=== PATIENT | female | born 1985 | race Hispanic/Latino ===

== ENCOUNTER 2023-04-09 22:20 | Emergency (ER) | payer OTHER, SELFPAY ==
[2023-04-09 22:21] VITALS: BP 157/95; PULSE 109; RESP 18; TEMP 36.5; O2SAT 100
[2023-04-09] MEDS: ACETAMINOPHEN 500 MG TABLET 1000 MG PO (23:22)
--- NOTE | 2023-04-09 23:35 | ED.GENADULT ---
HPI - General Adult General Chief complaint: Dental/Oral Stated complaint: dental pain Time Seen by Provider: 04/09/23 22:51 Source: patient Mode of arrival: ambulatory Limitations: no limitations History of Present Illness HPI narrative: This is a 37-year-old female who presents to the ED with chief complaint of right lower dental pain ongoing for the past several weeks and worse in the last couple of days. Reports she has a cracked right lower molar that probably has a cavity. Denies fevers, chills, nausea, vomiting. Denies any trismus or drooling. Patient reports she is about 7.5 months . Related Data Allergies Allergy/AdvReac Type Severity Reaction Status Date / Time No Known Allergies Allergy Verified 04/09/23 22:54 Review of Systems Review of Systems: All systems as dictated in HPI Exam Narrative: GENERAL: Well-appearing, well-nourished, and in no acute distress. HEAD: Normocephalic, atraumatic. EYES: PERRLA and EOMI. ENT: Nares clear, no rhinorrhea or epistaxis. Mucous membranes moist. Oropharynx without tonsillar hypertrophy exudate or other lesions. Dental caries noted to the right lower molar. No obvious or identifiable abscess. Floor the mouth intact. No trismus. No drooling. NECK: Supple. No adenopathy or masses. CHEST: No respiratory distress. Clear to auscultation. No wheezes rales or rhonchi HEART: Regular rate and rhythm. No murmur heard. Normal peripheral pulses. ABDOMEN: Soft, nontender, nondistended, normal active bowel sounds. MSK: Normal range of motion. No edema. SKIN: Warm, dry, no rash. NEURO: Alert and oriented x3. No focal deficits. PSYCH: Normal mood and affect. Course Vital Signs Vital signs: Vital Signs Temperature 97.7 F 04/09/23 22:21 Pulse Rate 109 H 04/09/23 22:21 Respiratory Rate 18 04/09/23 22:21 Blood Pressure 157/95 H 04/09/23 22:21 Pulse Oximetry 100 04/09/23 22:21 Oxygen Delivery Room Air 04/09/23 22:21 Temperature 97.7 F 04/09/23 22:21 Pulse Rate 109 H 04/09/23 22:21 Respiratory Rate 18 04/09/23 22:21 Blood Pressure 157/95 H 04/09/23 22:21 Pulse Oximetry 100 04/09/23 22:21 Oxygen Delivery Room Air 04/09/23 22:21 Procedures Nerve Block Nerve Block 1: Nerve block date: 04/09/23 Nerve block time: 23:57 Time out performed: No Local Anesthetic: bupivacaine 0.5% Amount of anesthesia used (mL): 1.5 Side: right Intraoral Nerve Block: superior alveolar Procedure Successful: Yes Patient Tolerated Procedure: well Complications: none Medical Decision Making MDM Narrative Medical decision making narrative: This is a 37-year-old female who is and presents to the ED with chief complaint of dental pain. Exam shows dental caries to the right lower molar. No trismus or drooling or other signs of oropharyngeal emergency. She was given Tylenol here. Performed inferior alveolar nerve block with good effect. Prescription for amoxicillin given. Dental referral given. Pt will be discharged in stable condition. Return precautions given and supportive measures discussed. Pt is understanding and agreeable with plan for discharge and follow-up with PCP. Vital Signs Vital Signs: Vital Signs Temperature 97.7 F 04/09/23 22:21 Pulse Rate 109 H 04/09/23 22:21 Respiratory Rate 18 04/09/23 22:21 Blood Pressure 157/95 H 04/09/23 22:21 Pulse Oximetry 100 04/09/23 22:21 Oxygen Delivery Room Air 04/09/23 22:21 Temperature 97.7 F 04/09/23 22:21 Pulse Rate 109 H 04/09/23 22:21 Respiratory Rate 18 04/09/23 22:21 Blood Pressure 157/95 H 04/09/23 22:21 Pulse Oximetry 100 04/09/23 22:21 Oxygen Delivery Room Air 04/09/23 22:21 Discharge Plan Discharge Clinical Impression: Dental caries Patient Disposition: Home, Self-Care Condition: Stable Instructions: Antibiotic Form Additional Instructions:
[2023-04-09] MEDS: LIDOCAINE HCL 2% VISC SOLN 15 ML UDC PO (23:38)
[2023-04-10 00:36] VITALS: BP 139/89; PULSE 88; RESP 16; O2SAT 100
== END 2023-04-10 00:42 | disposition home or self-care (01) ==
PROVIDERS: Emergency Provider Physician Assistant
DX: O99.612 Diseases of the digestive system complicating pregnancy, second trimester (principal); K02.9 Dental caries, unspecified; Z3A.00 Weeks of gestation of pregnancy not specified
CPT/HCPCS: 64999; 99283; A9270

== ENCOUNTER 2023-05-07 16:14 | Outpatient (CLI) | payer OTHER, SELFPAY ==
[2023-05-07 16:38] VITALS: BP 118/76; PULSE 105
[2023-05-07 16:41] VITALS: BP 124/70; PULSE 106
[2023-05-07 16:43] LABS: Basophils Percent Auto 0.1 % (0.2-1.2); Eosinophils Absolute Auto 0.1 K/mm3 (0-0.3); Hematocrit 31.9 % (37.0-47.0); Hemoglobin 10.6 g/dL (12.0-15.0); Immature Granulocyte Absolute 0.02 K/mm3 (0.00-0.031); Immature Granulocyte Percent A 0.3 % (0-0.5); Lymphocytes Absolute Auto 2.17 K/mm3 (0.9-3.2); Lymphocytes Percent Auto 30.4 % (18.3-44.2); Mean Corpuscular HGB Conc 33.2 g/dl (32-36); Mean Corpuscular Hemoglobin 27.7 pg (26-34); Mean Corpuscular Volume 83.5 fl (80-100); Mean Platelet Volume 11.5 fl (7.4-10.4); Monocytes Absolute Auto 0.5 K/mm3 (0.1-0.6); Monocytes Percent Auto 6.6 % (2.6-8.5); Neutrophils Absolute Auto 4.4 K/mm3 (1.3-6.7); Neutrophils Percent Auto 61.6 % (45.5-73.1); Platelet Count Result 248 k/mm3 (150-375); Red Blood Count 3.82 M/mm3 (4.2-5.4); Red Cell Distribution Width 13.6 % (11.5-14.5); White Blood Count 7.1 K/mm3 (4.5-10.0)
[2023-05-07 16:45] VITALS: PULSE 83; RESP 18; TEMP 36.6
--- NOTE | 2023-05-07 16:45 | LDADM ---
This patient, Laura Sanchez, was admitted to Labor/Delivery/Recovery 119 on at 16:14. Plans for labor, pain management and were discussed with patient. Patient/family oriented to hospital policies and general routines including ID bracelet, bed and alarms, visiting hours, pain management, procedures, bathroom and other care routines, personal items, smoking policy, room service/diet and guest tray routines, security routines, and visiting hours. Patient/Family are encouraged to report perceived risks to care and to ask questions if they do not understand what they are told or what they should do. See OBIX for further documentation.
[2023-05-07 16:48] LABS: Appearance Urine Clear (Clear); Bacteria Urine None Seen /hpf; Bilirubin Urine Negative (Negative); Blood Urine Negative (Negative); Color Urine Yellow (Yellow); Glucose Urine UA Negative (Negative); Ketones Urine Negative (Negative); Leukocyte Esterase Ur Negative LEU/UL (NEGATIVE); Nitrate Urine Negative (Negative); Non Pathogenic Casts 0-2; Protein Urine Trace mg/dL (Negative); RBC Urine 0-2 /hpf (0-2); Specific Grav Ur 1.015 (1.001-1.035); Squamous Epithelial Cell Urine Occasional /hpf (Few); WBC Urine 0-5 /hpf (0-3)
[2023-05-07 16:51] VITALS: BP 119/80; PULSE 105
[2023-05-07 16:58] LABS: Alanine Aminotransferase 17 U/L (6-35); Albumin Level 3.9 g/dL (3.5-5.1); Alkaline Phosphatase 294 U/L (38-126); Anion Gap 2 mmol/L (8-16); Aspartate Amino Transferase 27 U/L (14-36); Bilirubin,Total 0.5 mg/dL (0.2-1.3); Blood Urea Nitrogen 6 mg/dL (7-17); Calcium 9.3 mg/dL (8.4-10.2); Carbon Dioxide 21 mmol/L (22-30); Chloride 107 mmol/L (98-107); Estimated Glomerular Filt Rate > 60; Glucose 87 mg/dL (65-110); Sodium 130 mmol/L (137-145); Uric Acid 4.5 mg/dL (2.5-7.5)
[2023-05-07 16:59] LABS: Creatinine Urine 73.8 mg/dL; Total Protein Urine Random 17 mg/dL; Ur Ttl Prot Creatinine Ratio 0.23 mg/mg (0-0.20)
[2023-05-07 17:01] VITALS: BP 120/71; PULSE 103
[2023-05-07 17:02] LABS: Add Urine Microscopic? YES
[2023-05-07 17:11] VITALS: BP 99/80; PULSE 110
== END 2023-05-07 17:23 | disposition home or self-care (01) ==
LOC: ANHOBOP 16:18 → ANHLDR 16:18
PROVIDERS: Visit Provider Obstetrics & Gynecology
DX: O13.9 Gestational [pregnancy-induced] hypertension without significant proteinuria, unspecified trimester (principal); Z3A.00 Weeks of gestation of pregnancy not specified
CPT/HCPCS: 36415; 59025; 80053; 81001; 82570; 84156; 84550; 85025; 87086; 99199

== ENCOUNTER 2023-05-12 05:08 | Inpatient (IN) | payer OTHER, SELFPAY ==
[2023-05-12] VITALS (280 sets, daily range): BP systolic 87–162; BP diastolic 36–136; PULSE 76–203; RESP 16; TEMP 36.2–37; O2SAT 97–100; BMI 31.4
--- NOTE | 2023-05-12 05:31 | LDADM ---
This patient, Laura Clarke, was admitted to Labor/Delivery/Recovery 102 on 05/12/23 at 05:08. Plans for labor, pain management and were discussed with patient. Patient/family oriented to hospital policies and general routines including ID bracelet, bed and alarms, visiting hours, pain management, procedures, bathroom and other care routines, personal items, smoking policy, room service/diet and guest tray routines, infant security routines, and visiting hours. Patient/Family are encouraged to report perceived risks to care and to ask questions if they do not understand what they are told or what they should do. See OBIX for further documentation.
--- NOTE | 2023-05-12 05:44 | P.HP_ITS ---
H&P: HPI History of Present Illness Date/Time: 05/12/23 05:44 Chief Complaint: Hypertension at term Narrative: 37-year-old 4 para 2011 menstrual was 08/27/2022 use 124, presents at 37-,1/7 weeks gestation for induction of labor secondary to hypertension at term. She complains of headache. She had a vaginal delivery followed by C- section secondary to severe -induced hypertension. PIH labs are pending she is negative for group B strep. Meds Home Medications and Allergies Home Medications Medication Instructions Recorded Confirmed Type amoxicillin 500 mg capsule 500 mg PO Q12H #10 caps 04/09/23 Rx Allergies Allergy/AdvReac Type Severity Reaction Status Date / Time No Known Allergies Allergy Verified 04/09/23 22:54 Vital Signs Vital Signs - 24 hr 05/12/23 05:41 Pulse Rate 95 Blood Pressure 145/97 H Exam Const: General: cooperative, healthy appearing and comfortable Nutritional Appearance: average body habitus Orientation/consciousness: oriented to person, oriented to place and oriented to time HENMT: Head: normal to inspection Resp: Effort & Inspection: normal respiratory effort Cardio: Rate: regular rate Rhythm: regular rhythm Heart sounds: S1 normal heart sound present and S2 normal heart sound present GI: Inspection: normal to inspection ( Gravid soft uterus) : External Female Exam: normal external appearance Speculum Exam - Vagina: normal appearance of the vagina Speculum Exam - Cervix: normal appearance of the cervix ( cervix 2.5/60/2. AROM clear. FHT is reassuring) Assessment and Plan Assessment and plan (1) Term : Code(s): Z34.90 - Encounter for supervision of normal , unspecified, unspecified trimester Status: Acute (2) Gestational hypertension: Code(s): O13.9 - Gestational [-induced] hypertension without significant proteinuria, unspecified trimester Status: Acute Plan medical induction of labor. Spontaneous vaginal delivery expected. PIH labs were drawn. Risks and benefits of reviewed
[2023-05-12 05:45] LABS: Basophils Percent Auto 0.1 % (0.2-1.2); Eosinophils Absolute Auto 0.1 K/mm3 (0-0.3); Eosinophils Percent Auto 1.1 % (0-4.4); Hematocrit 32.5 % (37.0-47.0); Hemoglobin 10.6 g/dL (12.0-15.0); Immature Granulocyte Absolute 0.02 K/mm3 (0.00-0.031); Immature Granulocyte Percent A 0.3 % (0-0.5); Lymphocytes Absolute Auto 2.15 K/mm3 (0.9-3.2); Lymphocytes Percent Auto 29.9 % (18.3-44.2); Mean Corpuscular HGB Conc 32.6 g/dl (32-36); Mean Corpuscular Hemoglobin 27.9 pg (26-34); Mean Corpuscular Volume 85.5 fl (80-100); Mean Platelet Volume 11.9 fl (7.4-10.4); Monocytes Absolute Auto 0.6 K/mm3 (0.1-0.6); Monocytes Percent Auto 7.7 % (2.6-8.5); Neutrophils Absolute Auto 4.4 K/mm3 (1.3-6.7); Neutrophils Percent Auto 60.9 % (45.5-73.1); Platelet Count Result 254 k/mm3 (150-375); Red Cell Distribution Width 13.6 % (11.5-14.5); White Blood Count 7.2 K/mm3 (4.5-10.0)
[2023-05-12 05:56] LABS: Uric Acid 4.4 mg/dL (2.5-7.5)
[2023-05-12 06:01] LABS: Alanine Aminotransferase 14 U/L (6-35); Albumin Level 3.7 g/dL (3.5-5.1); Alkaline Phosphatase 256 U/L (38-126); Anion Gap 6 mmol/L (8-16); Aspartate Amino Transferase 24 U/L (14-36); Bilirubin,Total 0.4 mg/dL (0.2-1.3); Blood Urea Nitrogen 7 mg/dL (7-17); Calcium 9.1 mg/dL (8.4-10.2); Carbon Dioxide 22 mmol/L (22-30); Chloride 108 mmol/L (98-107); Estimated CRCL calculation 134 ml/min; Estimated Glomerular Filt Rate > 60; Glucose 92 mg/dL (65-110); Potassium 3.8 mmol/L (3.4-5.0); Sodium 136 mmol/L (137-145)
[2023-05-12 07:27] LABS: HIV 1/2 Ab P24 Ag Result Negative (Negative)
[2023-05-12] MEDS: LACTATED RINGERS 1,000 ML 125 ML IV CONT (08:18)
[2023-05-12] MEDS: OXYTOCIN 30 UNITS/NS 500 ML 30 UNITS/500 ML BAG IV CONT (08:20)
[2023-05-12] MEDS: LACTATED RINGERS 1,000 ML 999 ML IV CONT ×3 (10:34→19:30)
--- NOTE | 2023-05-12 11:00 | WPDANESEPP ---
Anes - Eval Pre Procedure Procedure: Labor Epidural Date/Time: 05/12/23 11:00 Surgeon: Danika Preop Diagnosis: Labor Pain Pre Op Diagnosis: iol Patient Data Age: 37 Gender: F Height: 1.63 m Weight: 83 kg Last Vital Signs Temp 36.6 C 05/12/23 09:00 Pulse 107 H 05/12/23 10:58 BP 130/80 05/12/23 10:58 Pulse Ox 99 05/12/23 10:58 Allergies Allergy/AdvReac Type Severity Reaction Status Date / Time No Known Allergies Allergy Verified 04/09/23 22:54 Home Medications Medication Instructions Recorded Confirmed Type amoxicillin 500 mg capsule 500 mg PO Q12H #10 caps 04/09/23 Rx Laboratory Tests 05/12/23 05:24 WBC 7.2 K/mm3 (4.5-10.0) RBC 3.80 L M/mm3 (4.2-5.4) Hgb 10.6 L g/dL (12.0-15.0) Hct 32.5 L % (37.0-47.0) MCV 85.5 fl (80-100) MCH 27.9 pg (26-34) MCHC 32.6 g/dl (32-36) RDW 13.6 % (11.5-14.5) Plt Count 254 k/mm3 (150-375) MPV 11.9 H fl (7.4-10.4) Immature Gran % (Auto) 0.3 % (0-0.5) Neut % (Auto) 60.9 % (45.5-73.1) Lymph % (Auto) 29.9 % (18.3-44.2) Wright % (Auto) 7.7 % (2.6-8.5) Eos % (Auto) 1.1 % (0-4.4) Baso % (Auto) 0.1 L % (0.2-1.2) Lymph # (Auto) 2.15 K/mm3 (0.9-3.2) Wright # (Auto) 0.6 K/mm3 (0.1-0.6) Eos # (Auto) 0.1 K/mm3 (0-0.3) Baso # (Auto) 0.0 K/mm3 (0.0-0.1) Abs Immat Gran (auto) 0.02 K/mm3 (0.00-0.031) Absolute Neuts (auto) 4.4 K/mm3 (1.3-6.7) Absolute Nucleated RBC 0.0 K/mm3 (0.0-0.012) Nucleated RBC % 0.0 % (0.0-0.2) Sodium 136 L mmol/L (137-145) Potassium 3.8 mmol/L (3.4-5.0) Chloride 108 H mmol/L (98-107) Carbon Dioxide 22 mmol/L (22-30) Anion Gap 6 L mmol/L (8-16) BUN 7 mg/dL (7-17) Creatinine 0.50 L mg/dL (0.7-1.0) Estim Creat Clear Calc 134 ml/min Estimated GFR > 60 (59 - ) Glucose 92 mg/dL (65-110) Uric Acid 4.4 mg/dL (2.5-7.5) Calcium 9.1 mg/dL (8.4-10.2) Total Bilirubin 0.4 mg/dL (0.2-1.3) AST 24 U/L (14-36) ALT 14 U/L (6-35) Alkaline Phosphatase 256 H U/L (38-126) Total Protein 8.0 g/dL (6.3-8.2) Albumin 3.7 g/dL (3.5-5.1) RPR Pending HIV 1&2 Ab/P24 Ag 4thGn Negative (Negative) Blood Type O Positive Antibody Screen Negative : gestational age (ALEXANDER 06[birth year], , ) Patient hx anesthesia problems: none Family hx anesthesia problems: none Results Review: All pre-operative results and documents have been reviewed as part of the pre-operative evaluation. [facility] Social History Social History Smoking status: Never smoker Second hand tobacco smoke exposure: No Substance use: never Lack of Transportation: No Lack of Food: Sometimes True Current Housing: I Have Housing Concerned About Future Housing: No Difficulty Paying Gas/Electric Bills: No Difficulty Paying for Meds: No Currently Unemployed: No Education: Grade School Difficulty w/ Childcare or Family Care: No Spiritual care concerns: No Exam Day of Procedure 05/12/23 11:00 Patient weight: obese Heart: regular rate and rhythm Lungs: normal air movement Airway: Mallampati scale class II Neurological: alert and oriented
[2023-05-12] MEDS: ACETAMINOPHEN 325 MG TABLET 650 MG PO ×2 (11:49→18:39)
[2023-05-12] MEDS: SODIUM CHLORIDE 0.9% IV 300 ML 600 ML I-UTERINE (12:36)
[2023-05-12 14:30] LABS: Rapid Plasma Reagin Non-Reactive (NonReactive)
[2023-05-12] MEDS: ONDANSETRON INJ 4 MG/2 ML VIAL IV PUSH (14:38)
--- NOTE | 2023-05-12 16:06 | PM.OBPNLAB ---
Pain Control Date/time seen: 05/12/23 16:06 Pain control: tolerating well and epidural Pelvic Exam station: -1 Amniotic membrane status: Leaking Contractions Monitor mode: Internal Contraction pattern: Irregular
[2023-05-13] VITALS (113 sets, daily range): BP systolic 103–143; BP diastolic 59–89; PULSE 88–136; RESP 16–20; TEMP 36.4–37.8; O2SAT 95–100
[2023-05-13] MEDS: LACTATED RINGERS 1,000 ML 999 ML IV CONT (00:04)
[2023-05-13] MEDS: ACETAMINOPHEN 325 MG TABLET 650 MG PO ×3 (02:52→14:00)
[2023-05-13] MEDS: SODIUM CHLORIDE 0.9% IV 300 ML 600 ML I-UTERINE (03:08)
--- NOTE | 2023-05-13 06:08 | PM.OBPNLAB ---
Pain Control Date/time seen: 05/13/23 06:08 Pain control: tolerating well and epidural Pelvic Exam Dilation (cm): 10 Effacement (%): 100 station: 0 Amniotic membrane status: Leaking Contractions Monitor mode: Internal Contraction pattern: Irregular
--- NOTE | 2023-05-13 06:25 | PM.OBPRVD ---
OB - Vaginal Delivery Note Procedure Delivery date: 05/13/23 Events: Gestational Hypertension Induction method: AROM Delivery monitor: Internal FHT and Internal Uterine Route of delivery: Episiotomy description: None Laceration Description: None Quantitative Blood Loss (ml): 61 Anesthesia type: Epidural Disposition: Floor Complications: No immediate complications [place] Baby Date of : 05/13/23 Time of : 06:14 Weeks of gestation at delivery: 37 Infant gender: Female presentation: vertex position: Right Occiput Anterior Placenta delivery description: Spontaneous Cord Vessel Description: 3 Vessels, Nuchal Cord, Loose and Reduced score one minute: 8 score five minutes: 8
[2023-05-13] MEDS: OXYTOCIN 30 UNITS/NS 500 ML 30 UNITS/500 ML BAG 125 UNITS IV CONT (06:40)
[2023-05-13] MEDS: IBUPROFEN 600 MG TABLET PO ×2 (07:50→14:00)
--- NOTE | 2023-05-13 07:53 | PM.DS ---
DS: Admitting Diagnosis Discharge Date 05/14/2023 Admitting Diagnosis Term gestational hypertension DS: Discharge Diagnosis Discharge Diagnosis (1) Gestational hypertension: Code(s): O13.9 - Gestational [-induced] hypertension without significant proteinuria, unspecified trimester Status: Acute (2) Term : Code(s): Z34.90 - Encounter for supervision of normal , unspecified, unspecified trimester Status: Acute DS: Summary Hospital Course Reason for hospitalization: patient was admitted for induction of labor. Hospital Course: Patient underwent spontaneous vaginal 12 1323. Her hospital course was unremarkable. She remained afebrile she was up, voiding without difficulty, ambulating, eating regular breast-feeding and Time Spent with Patient Time attestation: Total time spent providing and/or coordinating discharge services: Exam Const: General: cooperative, healthy appearing and comfortable Nutritional Appearance: average body habitus Orientation/consciousness: oriented to person, oriented to place and oriented to time HENMT: Head: normal to inspection Resp: Effort & Inspection: normal respiratory effort Cardio: Rate: regular rate Rhythm: regular rhythm Heart sounds: S1 normal heart sound present and S2 normal heart sound present GI: Inspection: normal to inspection DS: Data Data Completed and Pending Labs on day of discharge: Labs from last 24 hours 05/12/23 05:24 RPR Non-reactive Discharge Plan Discharge Attending physician on discharge: Ramón Puga Discharging Clinician: Ramón Puga Patient Disposition: Home, Self-Care Activity: may shower and pelvic rest Diet: heart healthy Wound Care Instructions: follow printed instructions Patient Instructions: Antibiotic Form Stand Alone Forms: General Discharge Information Follow-up/Referrals: Ramón Puga MD [Physician] - Discharge Medications: Continued amoxicillin 500 mg capsule 500 mg PO Q12H Qty: 10 0RF Date of admission: 05/12/23 05:08 Primary Care Provider: PHYSICIAN,FORMING PRESS OPERATOR Admitting Provider: Ramón Puga Attending physician on admission: Ramón Puga Condition: Stable
[2023-05-13] MEDS: BENZOCAINE 20% AER SPR (*SP) 56 GM CAN 1 SPRAY TOPICAL (08:19)
[2023-05-13] MEDS: WITCH HAZEL 40 PADS 1 PAD TOPICAL (08:19)
--- NOTE | 2023-05-13 08:55 | OBPPTRN ---
Patient transferred to post room #286 via wheelchair. Support person present. Oriented to unit, room, information board, rooming in, admission packet and security measures. Patient verbalizes understanding.
--- NOTE | 2023-05-13 09:25 | PC.NURSE ---
Breast pump provided due to separation from infant. Instructions given on cleaning, care, usage, that there should be no pain, pumping schedule for milk production, collection, and storage of human milk. Patient was assessed for correct placement, flange size, to pump for comfort and nipple stretching/stimulation for adequate milk production every 3 hours (8 times in 24 hours) 1-2 times at night.
[2023-05-13] MEDS: MULTIVIT/MIN/PREN/FOL AC/IRON TABLET 1 TAB PO (10:22)
[2023-05-13] MEDS: DOCUSATE SODIUM 100 MG CAPSULE PO (10:22)
[2023-05-14 04:10] VITALS: BP 114/76; PULSE 83
[2023-05-14 05:21] LABS: Hematocrit 28.6 % (37.0-47.0); Hemoglobin 9.1 g/dL (12.0-15.0)
--- NOTE | 2023-05-14 07:44 | PM.OBPNVD ---
OB - PN: Subj Subjective Date/time seen: 05/14/23 07:44 Patient comments: no complaints and pain well controlled baby status: doing well and nursing well OB - PN: Obj Data Labs 05/14/23 04:22 05/12/23 05:24 Labs: Laboratory Results - last 24 hr 05/14/23 04:22 Hgb 9.1 L Hct 28.6 L OB - PN A/P Plan day: 1 Plan: routine care, discharge home and follow up 6 weeks Time Spent With Patient Time: Total time spent is greater than 50% in coordination of care (as documented) at patient's floor/unit and/or counseling patient: Time with patient: less than 15 minutes Exam Const: General: cooperative, healthy appearing and comfortable Nutritional Appearance: average body habitus Orientation/consciousness: oriented to person, oriented to place and oriented to time HENMT: Head: normal to inspection Resp: Effort & Inspection: normal respiratory effort GI: Inspection: normal to inspection
[2023-05-14 08:00] VITALS: BP 125/75; PULSE 85; RESP 16; TEMP 36.9; O2SAT 99
[2023-05-14] MEDS: POLYSACCHARIDE IRON COMPLEX 150 MG CAPSULE PO ×2 (08:08→17:00)
[2023-05-14] MEDS: MULTIVIT/MIN/PREN/FOL AC/IRON TABLET 1 TAB PO (08:08)
[2023-05-14] MEDS: DOCUSATE SODIUM 100 MG CAPSULE PO ×2 (08:09→17:00)
--- NOTE | 2023-05-14 08:57 | WPDANLDPN2 ---
Anes-Prog Note L&D Date/Time: 05/14/23 08:57 Comfortable throughout: labor and delivery Neuraxial method: epidural Epidural/Spinal procedure site: clean & non-tender Neuro status: Neuro function grossly intact. Cardiovascular status: normal Respiratory status: normal Airway patency: baseline Mental status: baseline Post-Op hydration status: normal Vital Signs: Last Vital Signs Temp 36.6 C 05/13/23 19:40 Pulse 83 05/14/23 04:10 Resp 18 05/13/23 19:40 BP 114/76 05/14/23 04:10 Pulse Ox 97 05/13/23 11:45 O2 Del Method Room Air 05/13/23 19:40 Pain score (VAS): 2/10 I/O: Intake & Output 05/13/23 05/14/23 05/14/23 23:59 07:59 15:59 Intake Total 350 550 Output Total 900 Balance 350 -350 Post-procedural complaints: none Patient feedback: Patient satisfied with anesthetic care.
[2023-05-14] MEDS: IBUPROFEN 600 MG TABLET PO ×2 (11:05→17:00)
[2023-05-14] MEDS: ACETAMINOPHEN 325 MG TABLET 650 MG PO ×2 (11:05→17:00)
[2023-05-14 12:11] VITALS: BP 108/64; PULSE 94; RESP 16; TEMP 36.6; O2SAT 99
[2023-05-14 15:35] VITALS: BP 129/86
[2023-05-14 19:56] VITALS: BP 140/90; PULSE 87; RESP 16; TEMP 36.9; O2SAT 100
[2023-05-14] MEDS: HYDROcodone/acetaminophen (*CRX) 5-325 MG TABLET 1 TAB PO (21:16)
[2023-05-15 03:14] VITALS: BP 144/91
[2023-05-15] MEDS: DOCUSATE SODIUM 100 MG CAPSULE PO (08:02)
[2023-05-15] MEDS: IBUPROFEN 600 MG TABLET PO (08:02)
[2023-05-15] MEDS: MULTIVIT/MIN/PREN/FOL AC/IRON TABLET 1 TAB PO (08:02)
[2023-05-15] MEDS: POLYSACCHARIDE IRON COMPLEX 150 MG CAPSULE PO (08:02)
[2023-05-15 08:12] VITALS: BP 136/78; PULSE 88; RESP 18; TEMP 37.2; O2SAT 98
[2023-05-15 11:41] VITALS: BP 136/82; PULSE 83; RESP 20; TEMP 36.7; O2SAT 99
== END 2023-05-15 13:50 | disposition home or self-care (01) | DRG 560 ==
LOC: ANHLDR 05-13 08:39 → ANHOB2 05-13 08:59
PROVIDERS: Admitting Provider Obstetrics & Gynecology; Visit Provider Obstetrics & Gynecology
DX: O13.4 Gestational [pregnancy-induced] hypertension without significant proteinuria, complicating childbirth (principal); Z37.0 Single live birth; Z3A.37 37 weeks gestation of pregnancy; O42.02 Full-term premature rupture of membranes, onset of labor within 24 hours of rupture; O34.211 Maternal care for low transverse scar from previous cesarean delivery; O69.81X0 Labor and delivery complicated by cord around neck, without compression, not applicable or unspecified
CPT/HCPCS: 36415; 80053; 84550; 85014; 85018; 85025; 86592; 86703; 86850; 86900; 86901; A9270; G0432; J2405; J2590; J2795; J7030; J7120